=== PATIENT | female | born 1960 | race American Indian/Alaskan Native ===

== ENCOUNTER 2020-10-21 07:45 | Day surgery (SDC) | payer MEDICARE ==
[2020-10-21] MEDS ORDERED: SODIUM CHLORIDE 0.9% 1000 ML 1,000 ML IV SCH (08:00)
--- NOTE | 2020-10-21 10:01 | Anesthesia Day of Surgery ---
Anesthesia Day of Surgery - Day of Surgery Patient Examined: Yes Patient H&P Reviewed: Yes Patient is NPO: Yes
--- NOTE | 2020-10-21 10:03 | Anesthesia Consultation ---
Anesthesia Consult and Med Hx Date of service: 10/21/20 - Airway Anesthetic Teeth Evaluation: Chipped (Missing) ROM Head & Neck: Adequate Mental/Hyoid Distance: Adequate Mallampati Class: Class I Intubation Access Assessment: Good - Pre-Operative Health Status ASA Pre-Surgery Classification: ASA2 Proposed Anesthetic Plan: MAC - Pulmonary Hx Smoking: No - Cardiovascular System Hx Hypertension: No - Gastrointestinal Hx Gastroesophageal Reflux Disease: Yes - Endocrine Hx Renal Disease: No Hx Insulin Dependent Diabetes: Yes - Hematic Hx Sickle Cell Disease: No - Other Systems Hx Obesity: Yes
[2020-10-21] MEDS ORDERED: propofoL 200 MG/20 ML VIAL IV ONE (10:09)
--- NOTE | 2020-10-21 10:31 | Procedure Note ---
Date of procedure: 10/21/20 Pre-op diagnosis: Melena Post-op diagnosis: other (No Peptic Ulcer Disease noted/ No active Upper GI Bleeding noted/Patent Pylorus/ Diabetic Gastroparesis/ Mild to Moderate Erosive Esophagitis/ Gastritis and Gastric Nodule) Procedure: EGD with Biopsy Anesthesia: [facility] [place] Surgeon: AL RODRIGUEZ Estimated blood loss: minimal Pathology: list Specimen disposition: to lab Condition: stable Disposition: same day (Treat with PPI and Reglan. Avoid aspirin and NSAID for 4 days; otherwise resume home medication and follow up in 1 to 2 weeks ([phone]).)
--- NOTE | 2020-10-21 10:32 | Operative Report ---
INDICATIONS: This is a 60-year-old female with an underlying history of diabetes mellitus, who stated that she had noticed some dark stools. EGD was done to assess for any source of upper GI bleeding. DESCRIPTION OF PROCEDURE: The procedure was done after getting informed consent with MAC anesthesia. Instrument was passed through the hypopharynx into the esophagus, which showed some [id number] erosive esophagitis. Photodocumentation and biopsy was done from the distal esophagus. The stomach showed gastritis and gastric nodule as well as presence of gastroparesis. The pylorus was patent. The duodenum in the first and the second portion appeared normal. There was no blood within the duodenal or the gastric lumen. Biopsy was done from the gastric antrum, gastric body and from the angular incisura. Biopsy was also done from the gastric nodule with minimal bleeding. ASSESSMENT: History of melena. No peptic ulcer disease noted. No evidence of GI bleeding noted. Mild to moderate erosive esophagitis, gastritis, gastric nodules, gastroparesis. PLAN: To have the patient avoid aspirin and aspirin-related products for the next few days. Treat the patient with PPI and Reglan. Have the patient follow up in the office in 1-2 weeks' time and possibly to do a colonoscopy for further assessment of the patient's melena if the patient is willing. Procedure was done in the GI lab with assistance of the GI lab team, which included the GI nurse including the Michael Mendiola and with assistance of anesthesia. JOB# [id number] KULWANT/VICKIE
[2020-10-21] MEDS ORDERED: ONDANSETRON 4 MG/2 ML INJ IV ONE (10:55)
--- NOTE | 2020-10-21 10:55 | Post Anesthesia Evaluation ---
- Post Anesthesia Evaluation Patient Participated: Yes Airway Patent: Yes Stable Respiratory Function: Yes Nausea/Vomiting: No Temp > 96.8F: Yes Pain Manageable: Yes Adequeate Hydration: Yes Anesthesia Complications: No Block Receding Appropriately: Not Applicable Patient on Ventilator: No
[2020-10-21] MEDS ORDERED: ONDANSETRON 4 MG/2 ML INJ ONE (10:57)
[2020-10-21 17:14] VITALS: BP 118/76
== END 2020-10-21 07:46 | disposition home or self-care (01) ==
LOC: GIO 07:45
DX: K92.2 Gastrointestinal hemorrhage, unspecified (principal); K29.70 Gastritis, unspecified, without bleeding; E11.9 Type 2 diabetes mellitus without complications; K21.00 Gastro-esophageal reflux disease with esophagitis, without bleeding; Z79.899 Other long term (current) drug therapy
CPT/HCPCS: 43239; 82962; 88305; 88342; J2405; J2704; J7030

== ENCOUNTER 2022-03-05 07:00 | Day surgery (SDC) | payer MEDICARE ==
[~2022-03-05 07:00] MED LIST: SODIUM CHLORIDE 0.9% 1000 ML 1,000 ML IV SCH
--- NOTE | 2022-03-05 07:44 | Anesthesia Consultation ---
Anesthesia Consult and Med Hx Date of service: 03/05/22 - Airway Anesthetic Teeth Evaluation: Chipped, Dentures ROM Head & Neck: Adequate Mental/Hyoid Distance: Adequate Mallampati Class: Class II Intubation Access Assessment: Probably Good - Pulmonary Exam CTA: Yes - Cardiac Exam Cardiac Exam: RRR - Pre-Operative Health Status ASA Pre-Surgery Classification: ASA2 Proposed Anesthetic Plan: MAC - Pulmonary Hx Smoking: No - Cardiovascular System Hx Hypertension: No (elevated BP but patient denies h/o hypertension) Hx Cardia Arrhythmia: No - Central Nervous System Hx Neuromuscular Disorder: No - Gastrointestinal Hx Gastroesophageal Reflux Disease: Yes - Endocrine Hx Renal Disease: No Hx Liver Disease: No Hx Insulin Dependent Diabetes: Yes - Hematic Hx Sickle Cell Disease: No - Other Systems Hx Obesity: No (BMI 16) - Additional Comments Anesthesia Medical History Comments: No GAC. No FHAC.
--- NOTE | 2022-03-05 07:56 | Anesthesia Day of Surgery ---
Anesthesia Day of Surgery - Day of Surgery Patient Examined: Yes Patient H&P Reviewed: Yes Patient is NPO: Yes
[2022-03-05] MEDS ORDERED: LIDOCAINE MPF (2%) 20 MG/1 ML VIAL 5 ML ONE (08:16)
[2022-03-05] MEDS ORDERED: propofoL 200 MG/20 ML VIAL IV ONE (08:16)
--- NOTE | 2022-03-05 09:03 | Procedure Note ---
Date of procedure: 03/05/22 Pre-op diagnosis: Dyspepsia/ Diabetic Gastroparesis Post-op diagnosis: other (Diabetic Gastroparesis/ Mild to moderate Erosive Esophagitis/ Gastritis/Patent Pylorus/ R/O Celiac Disease) Procedure: EGD with Biopsy Anesthesia: MAC Surgeon: AL RODRIGUEZ Estimated blood loss: minimal Pathology: list Specimen disposition: to lab Condition: stable Disposition: same day (Treat with PPI, Reglan and a course of flagyl if needed. Avoid aspirin and NSAID for 5days; otherwise resume previous medication and F/U in 1 to 2 weeks ([phone]).)
--- NOTE | 2022-03-05 09:38 | Operative Report ---
DATE OF SURGERY: 03/05/2022 PROCEDURE PERFORMED: EGD. INDICATIONS: This is a 61-year-old -[place] female with an underlying history of diabetes mellitus, has been having dyspeptic symptoms and possible symptoms of diabetic gastroparesis. EGD was done to make sure there was not any significant upper GI pathology present accounting for her symptoms. DESCRIPTION OF PROCEDURE: Procedure was done after getting informed consent with MAC anesthesia. The instrument was passed through the hypopharynx into the esophagus, which showed mild to moderate erosive esophagitis. Biopsy was done from the distal esophagus to assess for the severity of the erosive esophagitis as well as from the mid esophagus to assess for any eosinophilic esophagitis. The stomach showed a fluid collection suggestive of gastroparesis; however, the pylorus was patent. There were no ulcers noted within the gastric lumen either in the straight or the retroverted view. Biopsy was done from the gastric antrum, gastric body and angular incisura to assess for H. pylori and for atrophic gastritis. The pylorus was patent. The duodenum in the first and second portion appeared normal. Biopsy was done from the second part to rule out for possible celiac disease. ASSESSMENT: Dyspepsia, nausea, diabetic gastroparesis. No gastric outlet obstruction noted, gastritis, mild to moderate erosive esophagitis, rule out celiac disease. No peptic ulcer disease noted. PLAN: To treat the patient with PPI as well as Reglan and to give the patient a course of Flagyl if needed for possible associated small intestinal bacterial overgrowth. The patient will be asked to avoid aspirin and aspirin-related products for the next few days and follow up in the office in 1-2 weeks' time. Procedure was done in the GI lab with assistance of the GI lab team, which included the GI nurse, the chief ultrasound technologist and with assistance of anesthesia. TID: [id number] RECEIPT: [id number] KULWANT/GENEVIEVE
[2022-03-05 09:52] VITALS: BP 159/94
== END 2022-03-05 09:45 | disposition home or self-care (01) ==
LOC: GIO 07:00
DX: R10.13 Epigastric pain (principal); R11.0 Nausea; E11.43 Type 2 diabetes mellitus with diabetic autonomic (poly)neuropathy; K31.84 Gastroparesis; K29.70 Gastritis, unspecified, without bleeding; K21.00 Gastro-esophageal reflux disease with esophagitis, without bleeding; K31.89 Other diseases of stomach and duodenum; Z79.899 Other long term (current) drug therapy; Z79.4 Long term (current) use of insulin
CPT/HCPCS: 43239; 82962; 88305; 88342; J2704; J7030